=== PATIENT | female | born 1990 | race Caucasian/White ===

== ENCOUNTER 2016-08-01 05:39 | Emergency (ER) | payer BC ==
[~2016-08-01] VITALS: Ht 167.6 cm; Wt 109.0 kg
[~2016-08-01 05:39] MED LIST: ALBU8.5H3 INH; AMO500 PO; HYDR-3498 PO; IBUP800T25 PO; METH500T PO; NAPR-688 PO; PRED20TA PO
[2016-08-01 05:43] VITALS: Ht 167.6 cm; Wt 109.0 kg
[2016-08-01] MEDS ORDERED: ALPR0.5T PO (05:44)
--- NOTE | 2016-08-01 05:44 | ERD ---
ER Documentation Chief Complaint Date/Time DATE: 08/01/16 TIME: 05:43 Chief Complaint HPI This is a 26-year-old female comes in with complaints of anxiety. She says she has been feeling very anxious. Denies any homicidal suicidal ideation. Denies any auditory or visual hallucinations.. ROS All systems reviewed and are negative except as per history of present illness. Medications Home Meds Active Scripts Prednisone* (Prednisone*) 20 Mg Tab, 60 MG PO DAILY for 4 Days, TAB Prov:NGHIAMAYAFLACOJANESSAOLOS A. DO 11/25/15 Albuterol Sulfate* (Proair HFA*) 8.5 Gm Hfa.aer.ad, 2 PUFF INH Q4, #1 INHALER Prov:LEYLALAMINS A. DO 11/25/15 Ibuprofen* (Motrin*) 800 Mg Tab, 800 MG PO Q6H Y for PAIN AND OR ELEVATED TEMP, #30 TAB Prov:NGHIASERAFINJACKIESTOLOS A. DO 11/25/15 Amoxicillin* (Amoxicillin*) 500 Mg Cap, 500 MG PO TID for 7 Days, CAP Prov:KENAN FOSTER PA-C 08/31/15 Albuterol Sulfate* (Proair HFA*) 8.5 Gm Hfa.aer.ad, 2 PUFF INH Q4, #1 INHALER Prov:KENAN FOSTER PA-C 08/31/15 Hydrocodone Bit-Acetaminophen* ([place]*) 5-325 Mg Tab, 1 TAB PO Q6 Y for PAIN, # 20 TAB Prov:JESSA PARKER 08/25/15 Methocarbamol* (Robaxin*) 500 Mg Tab, 500 MG PO Q8 for 10 Days, TAB Prov:KADY ALVAREZ DO 08/04/15 Hydrocodone Bit-Acetaminophen* ([place]*) 5-325 Mg Tab, 1 TAB PO Q4H Y for PAIN, # 8 TAB Prov:KADY ALVAREZ DO 08/04/15 Naproxen* (Naproxen*) 500 Mg Tablet, 500 MG PO BID for 10 Days, TAB Prov:KADY ALVAREZ DO 08/04/15 Allergies Allergies: Coded Allergies: No Known Drug Allergy (Verified Allergy, Mild, 08/04/15) PMhx/Soc History of Surgery: Yes (caesarian section x 2; ectopic ) Anesthesia Reaction: No Hx Neurological Disorder: No Hx Respiratory Disorders: Yes (asthma) Hx Cardiac Disorders: No Hx Psychiatric Problems: No Hx Miscellaneous Medical Probl: No Hx Alcohol Use: Yes (socially) Hx Substance Use: No Hx Tobacco Use: No Physical Exam Physical Exam Const: [] Head: Atraumatic Eyes: Normal Conjunctiva ENT: Normal External Ears, Nose and Mouth. Neck: Full range of motion..~ No meningismus. Resp: Clear to auscultation bilaterally Cardio: Regular rate and rhythm, no murmurs Abd: Soft, non tender, non distended. Normal bowel sounds Skin: No petechiae or rashes Back: No midline or flank tenderness Ext: No cyanosis, or edema Neur: Awake and alert Psych: Normal Mood and Affect Procedures/MDM Medical decision-making: Patient comes in withgeneralized anxiety disorder with an acute flare. At this point clinically stable for outpatient management. Discharge home with Xanax. Follow-up with PCP. Departure Diagnosis: Primary Impression: Anxiety Condition: Stable JESSA PARKER August 01, 2016 05:44
== END 2016-08-01 05:45 | disposition home or self-care (01) ==
LOC: E/R 05:39
DX: F41.9 Anxiety disorder, unspecified (principal); J45.909 Unspecified asthma, uncomplicated
CPT/HCPCS: 99283

== ENCOUNTER 2016-10-06 04:00 | Emergency (ER) | payer BC ==
[~2016-10-06] VITALS: Ht 165.1 cm; Wt 113.0 kg
[~2016-10-06 04:00] MED LIST changes: +ALPR0.5T PO
[2016-10-06 04:07] VITALS: Ht 165.1 cm; Wt 113.0 kg
--- NOTE | 2016-10-06 04:21 | ERD ---
ER Documentation Chief Complaint Date/Time DATE: 10/06/16 TIME: 04:18 Chief Complaint RIGHT WRIST PAIN; DENIES INJURY. HPI 26-year-old female presents to emergency department for complaints of right wrist pain that started today. Patient has been working a lot lately, has been using hands to type, does repetitive movements of the right wrist. Patient started to have the pain today, throbbing pain, 6/10 scale is worse upon movement, is on and off numbness and tingling at times. Patient did not take any medication help with symptoms. ROS All systems reviewed and are negative except as per history of present illness. Medications Home Meds Active Scripts Alprazolam* (Xanax*) 0.5 Mg Tab, 0.5 MG PO Q8H Y for ANXIETY, #14 TAB Prov:JESSA PARKER 08/01/16 Prednisone* (Prednisone*) 20 Mg Tab, 60 MG PO DAILY for 4 Days, TAB Prov:LAMIN MAYERS ABarb DO 11/25/15 Albuterol Sulfate* (Proair HFA*) 8.5 Gm Hfa.aer.ad, 2 PUFF INH Q4, #1 INHALER Prov:JACKIE MAYERSTOLOS A. DO 11/25/15 Ibuprofen* (Motrin*) 800 Mg Tab, 800 MG PO Q6H Y for PAIN AND OR ELEVATED TEMP, #30 TAB Prov:JACKIE MAYERSTOLOS A. DO 11/25/15 Amoxicillin* (Amoxicillin*) 500 Mg Cap, 500 MG PO TID for 7 Days, CAP Prov:KENAN FOSTER PA-C 08/31/15 Albuterol Sulfate* (Proair HFA*) 8.5 Gm Hfa.aer.ad, 2 PUFF INH Q4, #1 INHALER Prov:KENAN FOSTER PA-C 08/31/15 Hydrocodone Bit-Acetaminophen* ([place]*) 5-325 Mg Tab, 1 TAB PO Q6 Y for PAIN, # 20 TAB Prov:JESSA PARKER 08/25/15 Methocarbamol* (Robaxin*) 500 Mg Tab, 500 MG PO Q8 for 10 Days, TAB Prov:KADY ALVAREZ DO 08/04/15 Hydrocodone Bit-Acetaminophen* ([place]*) 5-325 Mg Tab, 1 TAB PO Q4H Y for PAIN, # 8 TAB Prov:KADY ALVAREZ DO 08/04/15 Naproxen* (Naproxen*) 500 Mg Tablet, 500 MG PO BID for 10 Days, TAB Prov:KADY ALVAREZ DO 08/04/15 Allergies Allergies: Coded Allergies: No Known Drug Allergy (Verified Allergy, Mild, 08/04/15) PMhx/Soc History of Surgery: Yes (caesarian section x 2; ectopic ) Anesthesia Reaction: No Hx Neurological Disorder: No Hx Respiratory Disorders: Yes (asthma) Hx Cardiac Disorders: No Hx Psychiatric Problems: No Hx Miscellaneous Medical Probl: No Hx Alcohol Use: Yes (socially) Hx Substance Use: No Hx Tobacco Use: No Smoking Status: Never smoker FmHx Family History: No coronary disease, No diabetes, No other Physical Exam Vitals Vital Signs Date Time Temp Pulse Resp B/P Pulse Ox O2 Delivery O2 Flow Rate FiO2 10/06/16 04:07 98.1 78 18 131/78 100 Physical Exam GENERAL: The patient is well developed and appropriate for usual state of health, in no apparent distress. CHEST: Clear to auscultation bilaterally. There are no rales, wheezes or rhonchi. HEART: Regular rate and rhythm. No murmurs, clicks, rubs or gallops. No S3 or S4. ABDOMEN: Soft, nontender and nondistended. Good bowel sounds. No rebound or guarding. No gross peritonitis. No gross organomegaly or masses. No Parker sign or McBurney point tenderness. BACK: No midline or flank tenderness. EXTREMITIES: No tenderness on palpation and swelling noted in the right wrist, tenderness on the carpal tunnel nerve, positive Tinel's test and Phalen sign on right wrist., Equal pulses bilaterally. There is no peripheral clubbing, cyanosis or edema. No focal swelling or erythema. Full range of motion. Grossly neurovascularly intact. NEURO: Alert and oriented. Cranial nerves 2-12 intact. Motor strength in all 4 extremities with 5/5 strength. Sensation grossly intact. Normal speech and gait. SKIN: There is no apparent rash or petechia. The skin is warm and dry. HEMATOLOGIC AND LYMPHATIC: There is no evidence of excessive bruising or lymphedema. No gross cervical, axillary, or inguinal lymphadenopathy. Procedures/MDM Medical Decision Making: Patient's pain is most likely consistent with a most likely consistent with carpal tunnel syndrome. There is no suspicion for neurovascular compromise. Patient has intact sensation and circulation of the affected extremity. There is low suspicion for septic arthritis. Patient does not have any fever. Radiology exams not indicated at this time. Disposition: Home. Patient was advised to take [id number] ibuprofen, rest , was given days off for 2 days. Patient was advised to elevate the affected area and apply ice on affected area. Patient was advised that if symptoms are worse, numbness, tingling, high fever, unable to move joint, worsening symptoms , to return to emergency department immediately. Otherwise, patient is advised to follow up with the primary care doctor in 5-7 days for reevaluation of symptoms. Departure Diagnosis: Primary Impression: Wrist pain, acute Laterality: right Qualified Code: M25.531 - Wrist pain, acute, right Condition: Stable Patient Instructions: Carpal Tunnel Syndrome Prevention Tips, Carpal Tunnel, Wrist Sprain Additional Instructions: take otc ibuprofen EJ HERRERA NP Oct 06, 2016 04:20
== END 2016-10-06 04:19 | disposition home or self-care (01) ==
LOC: E/R 04:00 → FTE 04:19
DX: M25.531 Pain in right wrist (principal); J45.909 Unspecified asthma, uncomplicated
CPT/HCPCS: 99282

== ENCOUNTER 2017-03-26 01:31 | Emergency (ER) | END 2017-03-26 05:00 | disposition home or self-care (01) ==

== ENCOUNTER 2017-07-18 12:55 | Emergency (ER) | END 2017-07-18 14:09 | disposition home or self-care (01) ==